=== PATIENT | female | born 1945 | race Caucasian/White ===

== ENCOUNTER 2018-05-07 11:38 | Emergency (ER) | payer MEDICARE, OTHER ==
[~2018-05-07] VITALS: Ht 172.7 cm; Wt 99.8 kg
[~2018-05-07 11:38] MED LIST: ACCUPRIL20 MG PO; ASPIRIN81 MG PO; BIOTIN5 MG PO; CARTIA XT240 MG PO; FUROSEMIDE40 MG PO; ISOPTO CARPINE15 ML OP; LIPITOR40 MG PO; MELOXICAM15 MG PO; PAROXETINE HCL40 MG PO; PHAZYME PO; PHAZYME180 MG; PILOCARPINE HCL5 MG PO; PROZAC20 MG; QUINAPRIL HCL20 MG PO; SPIRIVA18 MCG INH; STOOL SOFTENER PO; SYMBICORT INH; TRAZODONE HCL50 MG PO; TYLENOL WITH C1 EACH PO; VITAMIN B-12 INJ
[2018-05-07 13:20] LABS: CLARITY,URINE CLEAR (CLEAR); COLOR,URINE YELLOW (YELLOW)
[2018-05-07 13:22] LABS: BILIRUBIN,URINE NEGATIVE (NEGATIVE); KETONES,URINE NEGATIVE (NEGATIVE); LEUKOCYTE ESTERASE ,URINE TRACE (NEGATIVE); NITRITE,URINE NEGATIVE (NEGATIVE); PROTEIN,URINE DIPSTICK NEGATIVE (NEGATIVE); URINE UROBILINOGEN 0.2 mg/dL (0.2 - 1)
[2018-05-07 13:24] LABS: AMORPHOUS SEDIMENT,URINE FEW (FEW); BACTERIA,URINE FEW /HPF; EPITHELIAL CELLS,URINE FEW /LPF; RBC,URINE 0-5 /HPF (0-5); WBC,URINE (MAN) 0-5 /HPF (0-5)
[2018-05-07 13:45] VITALS: BP 149/93
== END 2018-05-07 13:46 | disposition home or self-care (01) ==
LOC: ER 11:38
DX: R19.7 Diarrhea, unspecified (principal); R10.9 Unspecified abdominal pain
CPT/HCPCS: 81001; 99283

== ENCOUNTER → 2019-10-23 | Day surgery (SDC) | payer MEDICARE, OTHER ==
[~2019-10-23] MED LIST changes: +ACETAMINOPHEN 1000 MG/100 ML 100 ML IV ONE; +BUPIVACAINE 0.5%/EPI 30 ML SDV INJ ONE; +CALCIUM PO; +FENTANYL CITRATE/PF 100MCG/2 ML INJ ONE; +KETOROLAC TROMETHAMINE 30 MG/ML VIAL ONE; +LIDOCAINE HCL 2% LOCAL INJ 5 ML SDV VIAL INJ ONE; +MIDAZOLAM HCL 2 MG/2 ML VIAL ONE; +ONDANSETRON HCL INJ 2MG/ML 2ML 2 MG/ML VIAL ONE; +PANTOPRAZOLE PO; +PROPOFOL IV EMULSION 10 MG/ML 20 ML VIAL ONE; +SEVOFLURANE INHAL SOLN 250 ML PEN BTL ONE; +SUCCINYLCHOLINE CHLORIDE 20 MG/ML 10ML VIAL ONE
--- OUTSIDE RECORDS SUMMARY | 2019-10-23 08:11 | XMS REPORT | Encounter Summary ---
Author Organization Unknown Address [address] [place] [address] Phone [phone] Care Team Providers Care Clinical Reviewer Name Role Phone Dr. Mariusz Gunn 3 [phone] Chiqui Ya Jr, MD 82 [phone] Kp Willis MD 2 [phone] Ted Rodriguez MD 107 [phone] Ren Mason MD 111 [phone] Reason for Visit Insomnia; Depressive disorder; Benign essential hypertension Instructions 1. Cardiac pacemaker in situ 2. Body mass index 30+ - obesity body mass index: care instructions learning about healthy weight 3. Benign essential hypertension quinapril 40 mg tablet furosemide 40 mg tablet 4. Insomnia trazodone 150 mg tablet 5. Depressive disorder paroxetine 40 mg tablet psychiatry referral psychology referral 6. Primary malignant neoplasm of female breast MAMMO, screening, digital, bilateral 7. Primary fibromyalgia syndrome meloxicam 15 mg tablet Discussion Note: None recorded. Plan of Care Reminders Provider Appointments None recorded. Lab None recorded. Referral Psychiatry Referral 06/05/2019 Huber Mittal Psychology Referral 06/05/2019 Edd Bassett LPC Procedures None recorded. Surgeries None recorded. Imaging MAMMO, Screening, Digital, Bilateral 06/09/2019 Medications Name Start Date atorvastatin 40 mg tablet Take 1 tablet every day by oral route. biotin 5,000 mcg disintegrating tablet Take 1 tablet every day by oral route. diltiazem CD 240 mg capsule,extended release 24 hr Take 1 capsule every day by oral route. Eliquis 5 mg tablet Take 1 tablet every day by oral route. furosemide 40 mg tablet Take 1 tablet every day by oral route. Linzess 290 mcg capsule Take 1 capsule every day by oral route. meloxicam 15 mg tablet TAKE 1 TABLET BY MOUTH EVERY DAY metoclopramide 5 mg tablet Take 1 tablet twice a day by oral route. pantoprazole 40 mg tablet,delayed release Take 1 tablet every day by oral route for 90 days. paroxetine 40 mg tablet Take 1 tablet every day by oral route. pilocarpine 5 mg tablet Take 2 tablets every day by oral route. quinapril 40 mg tablet Take 1 tablet every day by oral route. sucralfate 1 gram tablet Take 1 tablet 3 times a day by oral route for 30 days. trazodone 150 mg tablet TAKE 1 TABLET BY MOUTH EVERY DAY NEEDED Medications Administered None recorded. Vitals Height Weight BMI Blood Pressure 5 ft 7 in 201.6 lbs 31.6 kg/m2 120/70 mm[Hg] Results Lab Results None recorded. Allergies Code Code System Name Reaction Severity Status Onset 47811 RxNorm Itraconazole Active 05/07/2018 405 RxNorm Erythromycin Base Abdominal Pain Active Penicillins Fever Active 20271012 RxNorm Sporanox Active Problems Name Status Onset Date Source Body Mass Index 30+ - Obesity Active 05/14/2016 Depressive Disorder Active 05/14/2016 Insomnia Active 05/14/2016 Primary Fibromyalgia Syndrome Active 05/14/2016 History of Tobacco Use Active 05/14/2016 Non-toxic Multinodular Goiter Active 08/14/2016 Atrioventricular Block Active 03/26/2017 Disorder of Cardiac Pacemaker Electrode Active 03/26/2017 Acute Deep Venous Thrombosis of Upper Extremity Active 03/28/2017 Primary Malignant Neoplasm of Female Breast Active 12/28/2018 Benign Essential Hypertension Active 12/28/2018 Cardiac Pacemaker in Situ Active 12/28/2018 Gastroesophageal Reflux Disease without Esophagitis Active 06/09/2019 Irritable Bowel Syndrome Characterized by Constipation Active 06/09/2019 History of Polyp of Colon Active 06/09/2019 Procedures Date Name Performed by 2019 Laparoscopic Cholecystectomy Information not available 06/30/2012 Colonoscopy with Biopsy Information not available Hernia Repair Information not available Partial Hysterectomy Information not available Tonsillectomy Information not available Vaccine List Vaccine Type influenza, high dose seasonal 05/14/20160.5 mL influenza, unspecified formulation 09/06/2014 05/07/2018 pneumococcal conjugate PCV 13 07/09/2015 pneumococcal polysaccharide PPV23 06/10/2018 zoster subunit 03/06/2018 06/23/2018 Social History Tobacco Smoking Status Former Smoker Past Encounters 06/05/2019 Cardiac Pacemaker in Situ; Body Mass Index 30+ - Obesity; Benign Essential Hypertension; Insomnia; Depressive Disorder; Primary Malignant Neoplasm of Female Breast; Primary Fibromyalgia Syndrome Cande Yoo MD: [address] [place] [address], Ph. History of Present Illness Note:74yo female presents for follow-up visit. Last visit 12/2018 for cough. Since last visit, pt had gallbladder removed. Saw Dr Rodriguez GI in April for HIDA scan & US of gallbladder showing no gallstones but GB only functioning at 4% per pt. Was sent to general surgeon, Dr Lange, & had lap steven [birth year]. Same day surgery. Still with symptoms so returned to Dr Rodriguez & amp; had EGD/colonoscopy earlier this month in May and found one colon polyp & amp; IBS due to stress.<div>Animal Cruelty Investigation Supervisor told her to decrease stress due to hair loss.</div><div> is stressful.</div><div>Currently on Paxil 40mg qd. Agreeable to psychiatry & psychology consult. On trazodone 150mg qhs for sleep.</div><div>Dr Rodriguez placed pt on high fiber diet for constipation. Started on Linzess 290mcg qpm working great. Next appt with Dr Rodriguez is 06/15/19. Negative for H pylori. No ulcer. Placed on GERD diet. Started on sucralfate bid, PPI (protonix 40mg qd), metoclopramide 5mg bid.</div><div>Here today for medication refills.</div><div>
<div>Previously:</div><div><div>Quit smoking in 2014. Smoked off & on since age 19 before that. Smoked 1ppd for 40yrs. Will not citrus picker another cigarette. Quit cold turkey.</div><div>
</div><div> Pt also notes that she's been having trouble with hot flashes. Had partial hyste rectomy due to heavy menses and went through menopause about age 51. Was on HRT for several years until she was found to have right breast cancer about 2003. Anderson d lumpectomy & XRT in 2004. No chemo. Last mammogram about Apr 2018. Would like referral to new oncologist & new conductor pullman to discuss hot flashes and possible treatment options. 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 Is not currently followed by oncologist, either.</div><div>
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 </div></div>< /div> Review of Systems:ROS as noted in the HPI Review of Systems Comprehensive General Adult ROS Reported By: Patient Eyes: Eyes: no vision change ENMT: Ears: no ear pain. Mouth/Throat: no sore throat Cardiovascular: Cardiovascular: no chest pain, no palpitations, no lightheadedness Respiratory: Respiratory: no cough, no wheezing, no shortness of breath, no coughing up blood Gastrointestinal: Gastrointestinal: no abdominal pain, no nausea, no vomiting, no constipation, normal appetite, no diarrhea Neurologic: Neurologic: no loss of consciousness, no headaches Psychiatric: Psych: depression, sleep disturbances, restless sleep, anxiety Physical Exam Upper Respiratory Infection Exam Comprehensive Reported By: Patient Constitutional: General Appearance in no acute distress Skin: Inspection and palpation: no rash, no lesions, no ulcer, good turgor, no jaundice Head: Sinuses no tenderness Eyes: Pupils EOM intact, PERRLA, conjunctiva non-injected Ears: Right External auditory canal normal appearance, no obstruction, no erythema, no discharge. Left External auditory canal normal appearance, no obstruction, no erythema, no discharge. Right Tympanic membrane mobile with pneumatic otoscopy, pearly chance, landmarks clear. Left Tympanic membrane: mobile with pneumatic otoscopy, pearly chance, landmarks clear Nose: Nasal Skin: no lesion, no lacerations. Nasal Mucosa normal, pink and moist Oral Cavity/Mouth: Lips, teeth, gums normal lips, normal gums. Oral Mucosa: normal, moist, no lesions. Palate: normal hard palate, normal soft palate. Tongue: normal tongue, no lesion, no edema. Tonsils: normal tonsils, no lesions. Posterior pharynx: normal Lymph Nodes: Cervical no palpable lymph node enlargement, no submandibular adenopathy, no posterior cervical adenopathy, no anterior cervical adenopathy, no supraclavicular adenopathy Neck: Neck symmetrical, trachea midline Lungs: Respiratory effort unlabored. Auscultation breath sounds normal, no wheezing, no rales / crackles, no rhonchi Cardiovascular System: Auscultation regular rate and rhythm, no murmur, no rubs, no gallops. Observation/Palpation of peripheral vascular system no varicosities, carotid pulse normal, no edema
--- OUTSIDE RECORDS SUMMARY | 2019-10-23 08:11 | XMS REPORT | Encounter Summary ---
Author Organization Unknown Address [address] [place] [address] Phone [phone] Care Team Providers Care Burglary Investigator Name Role Phone Dr. Mariusz Gunn 3 [phone] Chiqui Ya Jr, MD 82 [phone] Kp Willis MD 2 [phone] Ted Rodriguez MD 107 [phone] Ren Mason MD 111 [phone] Reason for Visit sore throat; cough / congestion Instructions 1. Pneumonia Zithromax Z-Riky 250 mg tablet codeine 10 mg-guaifenesin 100 mg/5 mL oral liquid 2. Body mass index 30+ - obesity body mass index: care instructions learning about healthy weight 3. Screening for disorder Discussion Note: None recorded. Plan of Care Reminders Provider Appointments None recorded. Lab None recorded. Referral None recorded. Procedures None recorded. Surgeries None recorded. Imaging None recorded. Medications Name Start Date atorvastatin 40 mg tablet Take 1 tablet every day by oral route. biotin 5,000 mcg disintegrating tablet Take 1 tablet every day by oral route. codeine 10 mg-guaifenesin 100 mg/5 mL oral liquid Take 10 mL every 8 hours by oral route as needed. diltiazem CD 240 mg capsule,extended release 24 [...] sucralfate 1 gram tablet Take 1 tablet every day by oral route for 30 days. trazodone 150 mg tablet TAKE 1 TABLET BY MOUTH EVERY DAY NEEDED Zithromax Z-Riky 250 mg tablet TAKE 2 TABLETS (500 MG) BY ORAL ROUTE ONCE DAILY FOR 1 DAY THEN 1 TABLET (250 MG) BY ORAL ROUTE ONCE DAILY FOR 4 DAYS Medications Administered None recorded. Vitals Height Weight BMI Blood Pressure 5 ft 7 in 205 lbs 32.1 kg/m2 130/60 mm[Hg] Results Lab Results None recorded. Allergies Code Code System Name Reaction Severity Status Onset 4053 RxNorm Erythromycin Base Abdominal Pain Active Penicillins [...] by 2019 Laparoscopic Cholecystectomy Information not available Colonoscopy with Biopsy Information not available Hernia Repair Information not available Partial Hysterectomy Information not available Tonsillectomy Information not available Vaccine List Vaccine Type influenza, high dose seasonal 05/14/20160.5 mL influenza, injectable, quadrivalent 05/07/2019 influenza, unspecified formulation 09/06/2014 05/07/2018 pneumococcal conjugate PCV 13 07/09/2015 pneumococcal polysaccharide PPV23 06/10/2018 zoster subunit 03/06/2018 06/23/2018 Social History Tobacco Smoking Status Former Smoker Past Encounters 07/28/2019 Pneumonia; Body Mass Index 30+ - Obesity; Screening for Disorder Casimiro Villa, DO: [address] [place] [address], Ph. History of Present Illness Upper Respiratory Symptoms Reported By: Patient Upper Respiratory Symptoms: Location: chest, throat. Quality: productive cough, colored phlegm, congested. Severity: moderate. Duration: ; 3 days. Onset/Timing: gradual. Context: no foreign travel, non-smoker, sick contact. Mod ifying Factors: OTC medication. Associated Symptoms: no fever, no vomiting, no diarrhea, yellow sputum, shortness of breath, wheezing, fatigue, sweats, sore throat Review of Systems Comprehensive General Adult ROS Reported By: Patient Constitutional: Constitutional: no night sweats, no significant weight gain, no significant weight loss, no exercise intolerance, lethargy; sweating throughout day Eyes: Eyes: no dry eyes, no vision change, no irritation ENMT: Ears: no difficulty hearing, no ear pain. Nose: no frequent nosebleeds, no nose problems, no sinus problems. Mouth/Throat: no bleeding gums, sore throat Cardiovascular: Cardiovascular: no chest pain, no shortness of breath when walking, no palpitations Respiratory: Respiratory: no wheezing, no coughing up blood, cough, shortness of breath Gastrointestinal: Gastrointestinal: no abdominal pain, no nausea, no vomiting, no constipation, no diarrhea Musculoskeletal: Musculoskeletal: no muscle aches, no muscle weakness Allergic/Immunologic: Allergy/Immunologic: no runny nose, no sinus pressure Physical Exam Upper Respiratory Infection Exam Comprehensive Reported By: Patient Constitutional: General Appearance moderate distress Skin: Inspection and palpation: no rash, no lesions, no ulcer, good turgor, no jaundice Head: Sinuses no tenderness Eyes: Pupils EOM intact, conjunctiva non-injected Ears: Right External auditory canal normal appearance, no erythema, no discharge. Left External auditory canal normal appearance, no erythema, no discharge. Right Tympanic membrane pearly chance, landmarks clear. Left Tympanic membrane: pearly chance, landmarks clear Nose: Nasal Skin: no lesion, no lacerations. Nasal Mucosa normal, pink and moist Oral Cavity/Mouth: Posterior pharynx: normal Lungs: Respiratory effort unlabored. Auscultation breath sounds normal, no wheezing, no rhonchi, rales / crackles,left midlung field Cardiovascular System: Auscultation no rubs, no gallops, murmur
--- OUTSIDE RECORDS SUMMARY | 2019-10-23 08:11 | XMS REPORT | Encounter Summary ---
Author Organization Unknown Address [address] [place] [address] Phone [phone] Care Team Providers Care Instrument Setter Name Role Phone Dr. Mariusz Gunn 3 [phone] Chiqui Ya Jr, MD 82 [phone] Kp Willis MD 2 [phone] Ted Rodriguez MD 107 [phone] Ren Mason MD 111 [phone] Reason for Visit flu symptoms Instructions 1. Influenza-like illness rapid flu (A+B) Tamiflu 75 mg capsule codeine 10 mg-guaifenesin 100 mg/5 mL oral liquid 2. Primary fibromyalgia syndrome meloxicam 15 mg tablet 3. Body mass index 30+ - obesity body mass index: care instructions learning about healthy weight Discussion Note: None recorded. Plan of Care Reminders Provider Appointments None recorded. Lab Rapid Flu (A+B) 09/28/2019 [facility] Referral None recorded. Procedures None recorded. Surgeries [...] 1 TABLET BY MOUTH EVERY DAY NEEDED metoclopramide 5 mg tablet Take 1 tablet [...] day by oral route for 30 days. Tamiflu 75 mg capsule Take 1 capsule twice a day by oral route for 5 days. trazodone 150 mg tablet TAKE 1 TABLET BY MOUTH EVERY DAY NEEDED Medications Administered None recorded. Vitals Height Weight BMI Blood Pressure 5 ft 7 in 210.2 lbs 32.9 kg/m2 136/84 mm[Hg] Results Lab Results Date Name Specimen Result Interpretation Description Value Range Status Address Rapid Flu (A+B) Type Flu a negative [facility]: [address] [facility] Type Flu B negative [facility]: [address] [facility] Allergies Code Code System Name Reaction Severity [...] 13 07/09/2015 pneumococcal polysaccharide PPV23 06/10/2018 zoster recombinant 03/06/2018 06/23/2018 Social History Tobacco Smoking Status Former Smoker Past Encounters 09/28/2019 Influenza-like Illness; Primary Fibromyalgia Syndrome; Body Mass Index 30+ - Obesity Casimiro Villa, DO: [address] [place] [address], Ph. History of Present Illness Note:Patient presents to the clinic today with the following concern(s):<div> < div><div>1) COLD SX'S </div><div>- cough, body aches, fever x 1 day. Cough is non-productive. Recent return from [place]. Has taken two ibuprofen prior to clinic visit but continues to have fever. Denies ear pain, sore throat, nasal congestion, sinus pain/pressure, n/v.
<div> </div></div></div></div> Review of Systems Comprehensive General Adult ROS Reported By: Patient Constitutional: Constitutional: no night sweats, no significant weight gain, no significant weight loss, no exercise intolerance, fever, lethargy Eyes: Eyes: no dry eyes, no vision change, no irritation ENMT: Ears: no difficulty hearing, no ear pain. Nose: no frequent nosebleeds, no nose problems, no sinus problems. Mouth/Throat: no sore throat, no bleeding gums Cardiovascular: Cardiovascular: no chest pain, no shortness of breath when walking, no palpitations Respiratory: Respiratory: no wheezing, no shortness of breath, cough Gastrointestinal: Gastrointestinal: no abdominal pain, no nausea, no vomiting, no constipation, no diarrhea Physical Exam Upper Respiratory Infection Exam Comprehensive Reported By: Patient Constitutional: General Appearance moderate distress Skin: Inspection and palpation: no rash, no lesions, no ulcer, good turgor, no jaundice Head: Sinuses no tenderness Eyes: Pupils EOM intact, conjunctiva non-injected Ears: Right External auditory canal no erythema, no discharge. Left External auditory canal no erythema, no discharge. Right Tympanic membrane pearly chance, landmarks clear. Left Tympanic membrane: pearly chance, landmarks clear Nose: Nasal Mucosa normal, pink and moist Oral Cavity/Mouth: Posterior pharynx: normal Lungs: Respiratory effort unlabored. Auscultation breath sounds normal, no wheezing, no rales / crackles, no rhonchi Cardiovascular System: Auscultation regular rate and rhythm, no murmur, no rubs, no gallops
--- OUTSIDE RECORDS SUMMARY | 2019-10-23 08:11 | XMS REPORT | Encounter Summary ---
Author Organization Unknown Address [address] [place] [address] Phone [phone] Care Team Providers Care Director Teen Post Name Role Phone Dr. Mariusz Gunn 3 [phone] Colin Momin MD 3 [phone] Chiqui Ya Jr, MD 82 [phone] Kp Willis MD 2 [phone] Ted Rodriguez MD 107 [phone] Ren Mason MD 111 [phone] Reason for Visit lab follow-up Instructions 1. Obesity learning about healthy weight 2. Acute bronchitis 3. Anemia hematology referral 4. Cardiac pacemaker in situ Discussion Note will refer to hematology Plan of Care Patient Instructions contiue meds ,obtain cxr Reminders Provider Appointments Return to Office on or around 10/20/2019 Colin Momin MD Lab None recorded. Referral Hematology Referral 10/16/2019 Anila Mcghee MD Procedures None recorded. Surgeries None recorded. Imaging None recorded. Medications Name Start Date atorvastatin 40 mg tablet Take 1 tablet every day by oral route. azithromycin 250 mg tablet TAKE 2 TABLETS (500 MG) BY ORAL ROUTE ONCE DAILY FOR 1 DAY THEN 1 TABLET (250 MG) BY ORAL ROUTE ONCE DAILY FOR 4 DAYS biotin 5,000 mcg disintegrating tablet Take 1 tablet every day by oral route. diltiazem CD 240 mg capsule,extended release 24 hr Take 1 capsule every day by oral route. Eliquis 5 mg tablet Take 1 tablet twice a day by oral route. furosemide 40 mg tablet Take 1 tablet every day by oral route. meloxicam 15 mg tablet TAKE 1 TABLET BY MOUTH EVERY DAY NEEDED pantoprazole 40 mg tablet,delayed release Take 1 tablet every day by oral route for 90 days. paroxetine 40 mg tablet Take 1 tablet every day by oral route. pilocarpine 5 mg tablet Take 2 tablets every day by oral route. quinapril 40 mg tablet Take 1 tablet every day by oral route. trazodone 150 mg tablet TAKE 1 TABLET BY MOUTH EVERY DAY NEEDED Medications Administered None recorded. Vitals Height Weight BMI Blood Pressure 5 ft 7 in 210 lbs 32.9 kg/m2 (1) 160/72 mm[Hg] (2) 136/72 mm[Hg] Results Lab Results Date Name Specimen Result Interpretation Description Value Range Status Address 10/13/2019 CBC W/ Auto Diff Normal White Blood Cell Count 7.5 thousand/uL 3.8-10.8 thousand/uL Final [facility]: [address] [place] [address], [place] Normal Red Blood Cell Count 3.83 million/uL 3.80-5.10 million/uL Final [facility] [address] [facility] Hemoglobin 9.1 g/dL 11.7-15.5 g/dL Final [facility] Laboratory: [address] [place] [address] Low Hematocrit 29.7 % 35.0-45.0 % Final [facility]: [address] [place] [address] Low Mcv 77.5 fL 80.0-100.0 fL Final [facility]: [address] [place] [address] Low Mch 23.8 pg 27.0-33.0 pg Final [facility]: [address] [facility], [place] Low Mchc 30.6 g/dL 32.0-36.0 g/dL Final [facility] Laboratory: [address] [place] [address] High Rdw 15.2 % 11.0-15.0 % Final [facility] Laboratory: [address] [place] [address] High Platelet Count 550 thousand/uL 140-400 thousand/uL Final [facility] Laboratory: [address] [place] [address] Normal Mpv 9.5 fL 7.5-12.5 fL Final [facility] [address] Normal Absolute Neutrophils 4613 cells/uL 8635-3471 cells/uL Final [facility]: [address] [place] [address] Normal Absolute Lymphocytes 1748 cells/uL 850-3900 cells/uL Final [facility]: [address] Normal Absolute Monocytes 773 cells/uL 200-950 cells/uL Final [facility]: [address] [facility] [place] Normal Absolute Eosinophils 300 cells/uL 15-500 cells/uL Final [facility]: [address] Normal Absolute Basophils 68 cells/uL 0-200 cells/uL Final [facility]: [address] [facility], [place] Normal Neutrophils 61.5 % Final [facility]: [address] Normal Lymphocytes 23.3 % Final [facility]: [address] [place] [address], [place] Normal Monocytes 10.3 % Final [facility]: [address] [place] [address], [place] Normal Eosinophils 4.0 % Final [facility]: [address] [facility] [place] Normal Basophils 0.9 % Final [facility]: [address] [place] [address] 10/13/2019 Iron + TIBC + Ferritin, Serum Ferritin 5.55 NG/mL 4.63- 204.00 NG/mL Final [facility]: [address] Iron, Total 51 mcg/dL 45-160 mcg/dL Final [facility]: [address] Transferrin 341 mg/dL 173-360 mg/dL Final [facility]: [address] High Total Iron Binding Capacity (Calculated) 488 mcg/dL 250-450 mcg/dL Final [facility]: [address] Low % Saturation 10.5 % 11.0-50.0 % Final [facility]: [address] 10/13/2019 Vitamin B12 + Folate, Serum or Blood Folate 16.1 NG/mL Final [facility]: [address] Vitamin B12 580 pg/mL 213-816 pg/mL Final [facility]: [address] Rapid Flu [facility]B) [facility] [address] [facility] [address] [facility] Allergies Code Code System Name Reaction [...] Information not available Tonsillectomy Information not available 10/13/2019 XR, Chest, 2 View [facility] [address] [place] [address] (Work Place) Vaccine List Vaccine Type influenza, high dose seasonal 05/14/20160.5 mL influenza, injectable, quadrivalent 05/07/2019 influenza, unspecified formulation 09/06/2014 05/07/2018 pneumococcal conjugate PCV 13 07/09/2015 pneumococcal polysaccharide PPV23 06/10/2018 zoster recombinant 03/06/2018 06/23/2018 Social History Tobacco Smoking Status Former Smoker Past Encounters 10/16/2019 Obesity; Acute Bronchitis; Anemia; Cardiac Pacemaker in Situ Colin Momin MD: [address] [place] [phone], Ph. 10/13/2019 Vertigo; Obesity; Acute Bronchitis; History of Anemia Colin Momin MD: [address] [place] [phone], Ph. 09/28/2019 Influenza-like Illness; Primary Fibromyalgia Syndrome; Body Mass Index 30+ - Obesity Casimiro Villa DO: [address] [place] [phone], Ph. History of Present Illness Note:f/u bronchitis compliant with -much improved awaiting cxr<div> lab - anemic,hgb/hct 9.1/29.7 .>platelets 550</div><div> ferritin 5.5-<%sat 10.5->tibc 488</div><div> normal colonoscopy last yr</div> Review of Systems:ROS as noted in the HPI Review of Systems None recorded. Physical Exam Upper Respiratory Infection Exam Comprehensive [...] and rhythm, no murmur, no rubs, no gallops; pace maker in situ. Observation/Palpation of peripheral vascular system no varicosities, carotid pulse normal, no edema
--- OUTSIDE RECORDS SUMMARY | 2019-10-23 08:11 | XMS REPORT | Encounter Summary ---
Author Organization Unknown Address [address] [place] [address] Phone [phone] Care Team Providers Care Sheetfed Press Operator Name Role Phone Dr. Mariusz Gunn 3 [phone] Chiqui Ya Jr, MD 82 [phone] Kp Willis MD 2 [phone] Ted Rodriguez MD 107 [phone] Ren Mason MD 111 [phone] Reason for Visit cough / congestion Instructions 1. Generalized aches and pains rapid flu (A+B) 2. Cold sweat 3. Body mass index 30+ - obesity body mass index: care instructions learning about healthy weight 4. Senile purpura 5. Chronic obstructive lung disease Discussion Note: None recorded. Plan of Care Reminders Provider Appointments None recorded. Lab Rapid Flu (A+B) 08/02/2019 [facility] Referral None recorded. Procedures None recorded. Surgeries [...] BMI Blood Pressure 5 ft 7 in 203 lbs 31.8 kg/m2 116/64 mm[Hg] Results Lab Results Date Name Specimen Result Interpretation Description Value Range Status Address 08/02/2019 Rapid Flu (A+B) Type [facility] [address] [facility] Type Flu B negative [facility] [address] [facility] Allergies Code Code System Name Reaction [...] Tobacco Smoking Status Former Smoker Past Encounters 08/02/2019 Generalized Aches and Pains; Cold Sweat; Body Mass Index 30+ - Obesity; Senile Purpura; Chronic Obstructive Lung Disease Casimiro Villa, DO: [address] [place] [address], Ph. 07/28/2019 Pneumonia; Body Mass Index 30+ - Obesity; Screening for Disorder Casimiro Villa, DO: [address] [place] [address], Ph. History of Present Illness Note:1) COLD SWEATS <div><div>- cough, congestion, cold sweats, body aches that started 8 days ago. Diagnosed with PNA and prescribed azithromycin. Has since improved after completing antibiotics. Cold sweats and body aches started to become less frequent. She left home yesterday to go out and while out had episode of cold sweats and body aches. Cold sweat and body aches was associated with stomach upset. Denies nausea, vomiting, diarrhea. Was concerned about constipation. </div></div> Review of Systems Comprehensive General Adult ROS Reported By: Patient Constitutional: Constitutional: no fever; cold sweats Cardiovascular: Cardiovascular: no chest pain, no shortness of breath when walking Respiratory: Respiratory: no wheezing, no shortness of breath, cough Gastrointestinal: Gastrointestinal: no nausea, no vomiting, no constipation, no diarrhea, abdominal pain Musculoskeletal: Musculoskeletal: no muscle weakness, no arthralgias/joint pain, no swelling in the extremities, muscle aches Integumentary: Skin: no jaundice, no rashes Endocrine: Endocrine: no fatigue Allergic/Immunologic: Allergy/Immunologic: runny nose, sinus pressure, frequent sneezing Physical Exam Upper Respiratory Infection Exam Comprehensive [...] clear Nose: Nasal Mucosa normal, pink and moist, clear discharge Oral Cavity/Mouth: Posterior pharynx: normal Lungs: Respiratory effort unlabored. Auscultation breath sounds normal, no wheezing, no rales / crackles, no rhonchi Cardiovascular System: Auscultation regular rate and rhythm, no murmur, no rubs, no gallops
--- OUTSIDE RECORDS SUMMARY | 2019-10-23 08:11 | XMS REPORT | Encounter Summary ---
Author Organization Unknown Address [address] [place] [address] Phone [phone] Care Team Providers Care Salon Professional Name Role Phone Dr. Mariusz Gunn 3 [phone] Chiqui Ya Jr, MD 82 [phone] Kp Willis MD 2 [phone] Ted Rodriguez MD 107 [phone] Ren Mason MD 111 [phone] Reason for Visit other - see typed reason Instructions 1. Acute laryngitis 2. Acute bronchitis Cheratussin AC 10 mg-100 mg/5 mL oral liquid 3. Cardiac pacemaker in situ 4. Primary malignant neoplasm of female breast oncology referral gynecology referral 5. Primary fibromyalgia syndrome meloxicam 15 mg tablet 6. Depressive disorder paroxetine 40 mg tablet 7. Body mass index 30+ - obesity body mass index: care instructions learning about healthy weight 8. Insomnia trazodone 150 mg tablet 9. Atrioventricular block 10. Benign essential hypertension quinapril 40 mg tablet Discussion Note: None recorded. Plan of Care Reminders Provider Appointments Return to Office on or around 03/29/2019 Cande Yoo MD Lab None recorded. Referral Oncology Referral 12/26/2018 Ilene ChairezJalenca Gynecology Referral 12/26/2018 Nolan Mancilla MD Procedures None recorded. Surgeries None recorded. Imaging None recorded. Medications Name Start Date atorvastatin 40 mg tablet Take 1 tablet every day by oral route. biotin 5,000 mcg disintegrating tablet Take 1 tablet every day by oral route. Cartia XT 240 mg capsule,extended release Take 1 capsule every day by oral route. Cheratussin AC 10 mg-100 mg/5 mL oral liquid Take 10 mL every 8 hours by oral route as needed. Eliquis 5 mg tablet Take 1 tablet every day by oral route. furosemide 40 mg tablet Take 1 tablet every day by oral route. hydrocortisone 2.5 % lotion PRN meloxicam 15 mg tablet TAKE 1 TABLET BY MOUTH EVERY DAY paroxetine 40 mg tablet Take 1 tablet every day by oral route. pilocarpine 5 mg tablet Take 2 tablets every day by oral route. quinapril 20 mg tablet Take 1 tablet every day by oral route. quinapril 40 mg tablet Take 1 tablet every day by oral route. trazodone 150 mg tablet TAKE 1 TABLET BY MOUTH EVERY DAY NEEDED Medications Administered None recorded. Vitals Height Weight BMI Blood Pressure 5 ft 7 in 204 lbs 32 kg/m2 (1) 146/72 mm[Hg] (2) 144/70 mm[Hg] Lab Results None recorded. Allergies Code Code System Name Reaction Severity Status Onset RxNorm Itraconazole Active 05/07/2018 405 RxNorm Erythromycin [...] 12/28/2018 Cardiac Pacemaker in Situ Active 12/28/2018 Procedures Date Name Performed by 06/30/2012 Colonoscopy with Biopsy Information not available Hernia Repair Information not available Partial Hysterectomy Information not available Tonsillectomy Information not available Vaccine List Vaccine Type influenza, high dose seasonal 05/14/20160.5 mL influenza, unspecified formulation 09/06/2014 05/07/2018 pneumococcal conjugate PCV 13 07/09/2015 pneumococcal polysaccharide PPV23 06/10/2018 zoster subunit 03/06/2018 06/23/2018 Social History Smoking Status Former Smoker (1 PPD) Past Encounters 12/26/2018 Acute Laryngitis; Acute Bronchitis; Cardiac Pacemaker in Situ; Primary Malignant Neoplasm of Female Breast; Primary Fibromyalgia Syndrome; Depressive Disorder; Body Mass Index 30+ - Obesity; Insomnia; Atrioventricular Block; Benign Essential Hypertension Cande Yoo MD: [address] [place] [address], Ph. History of Present Illness Note:73yo female presents for evaluation of laryngitis for the past two weeks associated with cough. Occasional yellow sputum. No fever. Very sore throat. Has been staying home & not talking. Voice is worse after coughing spell.<div> Saw ENT, Dr Venkat Rhoades about 10days ago. Was given cough medicine with hydrocodone from Dr Rhoades, but it didn't work as well as prior cough medicine with codeine fr om Dr Lr & Dr Momin.</div><div>Quit smoking in 2014. Smoked off & on since age 19 before that. Smoked 1ppd for 40yrs. 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 Quit cold turkey.</div><div>
</div><div>Pt also notes that she's been having trouble with hot flashes. Had partial hysterectomy due to heavy menses and went through menopause about age 51. Was on HRT for several years until she was found to have right breast cancer about 2003. Had lumpectomy & XRT in 2004. No chemo. Last mammogram about Apr 2018. Would like referral to new oncologist & new rag sorter and cutter to discuss hot flashes and possible treatment options. 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 Is not currently followed by oncologist, either.</div><div>
</div><div>Would like refill of regular medications today while in office.</div><div>
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 Next appt in February 2019, last visit in Aug 2019.</div> Review of Systems:ROS as noted in the HPI Review of Systems Comprehensive General Adult ROS Reported By: Patient Eyes: Eyes: no vision change ENMT: Ears: no ear pain. Nose: nose problems. Mouth/Throat: sore throat; laryngitis, hoarseness Cardiovascular: Cardiovascular: no chest pain, no palpitations, no lightheadedness Respiratory: Respiratory: no wheezing, no shortness of breath, no coughing up blood, cough Gastrointestinal: Gastrointestinal: no abdominal pain, no nausea, no vomiting, no constipation, normal appetite, no diarrhea Neurologic: Neurologic: no loss of consciousness, no headaches Physical Exam Upper Respiratory Infection Exam Comprehensive [...]
--- OUTSIDE RECORDS SUMMARY | 2019-10-23 08:11 | XMS REPORT ---
Author Organization Unknown Address [address] [place] [address] Phone [phone] Care Team Providers Care Gluing Machine Feeder Name Role Phone ALEC KONG JR, MD 82 [phone] JUAN M SANTANA MD 2 [phone] Allergies Code Code System Name Reaction Severity Status Onset 63466 RxNorm Itraconazole Deactivated 08/14/2016 4053 RxNorm Erythromycin Base Abdominal Pain Active Penicillins Active 20271012 RxNorm Sporanox Active Medications Name Status Start Date Stop Date acetaminophen 300 mg-codeine 30 mg tablet Completed 05/14/2016 Advair Diskus 250 mcg-50 mcg/dose powder for inhalation BID Completed 02/22/2017 Amitiza 8 mcg capsule Completed 02/10/2017 atorvastatin 40 mg tablet Take 1 tablet every day by oral route. Active Not available azithromycin 250 mg tablet Completed 06/01/2016 biotin 5,000 mcg disintegrating tablet Take 1 tablet every day by oral route. Active Not available Cartia XT 240 mg capsule,extended release Active Not available Cheratussin AC 10 mg-100 mg/5 mL oral liquid Take 10 mL every 4 hours by oral route. Completed 07/22/2016 ciprofloxacin 0.3 % eye drops Instill 1 [drp] by ophthalmic route. Completed 08/26/2017 clindamycin HCl 300 mg capsule Completed 07/22/2016 clotrimazole-betamethasone 1 %-0.05 % topical cream DIRECTED Completed 02/10/2017 dexamethasone 4 mg/mL injection solution Take 1 mL by injection route. Completed 07/22/2016 apixaban 5 mg tablet 10 mg by oral route. Completed 03/29/2017 04/13/2017 furosemide 40 mg tablet Take 1 tablet every day by oral route. Active Not available hydrocodone 10 mg-acetaminophen 325 mg tablet Completed 05/14/2016 hydrocortisone 2.5 % lotion PRN Active Not available indomethacin 25 mg capsule Take 1 capsule every day by oral route. Active Not available Kenalog 40 mg/mL suspension for injection Take 1 mL by injection route. Completed 07/22/2016 levofloxacin 500 mg tablet Completed 07/22/2016 meloxicam 15 mg tablet Active Not available minocycline 100 mg capsule Completed 08/26/2017 naproxen 500 mg tablet Completed 05/14/2016 Paxil 40 mg tablet Take 1 tablet every day by oral route. Active Not available pilocarpine 5 mg tablet Take 2 tablets every day by oral route. Active Not available prednisolone acetate 1 % eye drops,suspension Completed 08/26/2017 prednisolone sodium phosphate 1 % eye drops Instill 1 [drp] by ophthalmic route. Completed 08/26/2017 ProAir HFA 90 mcg/actuation aerosol inhaler Completed 02/10/2017 quinapril 20 mg tablet Take 1 tablet every day by oral route. Active Not available SB Low Dose ASA EC 81 mg tablet,delayed release Take 1 tablet every day by oral route. Active Not available Spiriva Respimat 2.5 mcg/actuation solution for inhalation Completed 05/14/2016 SSD 1 % topical cream Completed 08/26/2017 trazodone 150 mg tablet Active Not available Ultram 50 mg tablet 50 mg every 6 hours by oral route. Completed 03/26/2017 04/01/2017 Vagifem 10 mcg vaginal tablet Completed 02/10/2017 Notes: stool softener 1 tab every day biotene 1 tab every day phazyme 250 mg 1 prn OTC EYE DROPS : QD Problems Name Status Onset Date Source Body Mass Index 30+ - Obesity Active 05/14/2016 Depressive Disorder Active 05/14/2016 Insomnia Active 05/14/2016 Primary Fibromyalgia Syndrome Active 05/14/2016 History of Tobacco Use Active 05/14/2016 Non-toxic Multinodular Goiter Active 08/14/2016 External Atrioventricular Block Active 03/26/2017 External Disorder of Cardiac Pacemaker Electrode Active 03/26/2017 External Acute Deep Venous Thrombosis of Upper Extremity Active 03/28/2017 External Procedures Date Name Performed by Hernia Repair Notes: 2009 for Hiatal Hernia Information not available Partial Hysterectomy Notes: 1990 Information not available Tonsillectomy Notes: 1975 Information not available 07/06/2016 US, Neck, Soft Tissue [facility] [place] [address] [place] [address] (Work Place) 02/10/2017 US, Neck, Soft Tissue [facility] [place] [address] [place] [address] (Work Place) 02/11/2017 US, Thyroid [facility] [place] [address] [place] [address] (Work Place) 09/30/2017 CT, Head, W/o Contrast [facility] [place] [address] [place] [address] (Work Place) Notes: Cardiac ablation:1994 pacemaker:1996 new pacemaker:2003 3rd pacemaker:2009 lapband:2005 Right Breast lumpectomy:2003 Right Ankle ORIF:2004 Colonic polyp removal:2008 lump removal(neck):2009 Left breast reduction:2010 bladder susp:2010 Right cataract removal,lens implant:2012 liposuction,tummy tuck,butt lift:2013 Right ankle hardware removal:2015 *rt lung doesn't work* Lab Results Date Name Specimen Result Interpretation Description Value Range Status Address 08/09/2017 Lipid Panel, Serum No observation recorded. 02/10/2017 CBC W/ Auto Diff Wbc 8.02 x10*3/L 2.60-11.20 x10*3/L Final [facility]: [address] Rbc 4.77 10*12/L 3.93-5.87 10*12/L Final [facility]: [address] Hemoglobin 13.70 g/dL 10.70-15.70 g/dL Final [facility]: [address] Hematocrit 42.4 % 33.2-46.8 % Final [facility]: [address] Mcv 88.9 fL 77.8-103.4 fL Final [facility]: [address] Mch 28.7 pg 24.8-35.0 pg Final [facility]: [address] Mchc 32.3 g/dL 31.5-35.9 g/dL Final [facility]: [address] RDW-SD 42.4 fL 35.8-50.4 fL Final [facility]: [address] Platelet Count 331.0 k/uL 126.7-416.1 k/uL Final [facility]: [address] Mpv 10.9 fL 8.3-13.5 fL Final [facility]: [address] Neut% 66.4 % 39.5-76.9 % Final [facility] [address] [facility] Lymph% 22.9 % 12.6-45.8 % Final [facility]: [address] Mon% 7.6 % 3.7-12.9 % Final [facility] [address] [facility] Eos% 2.5 % 0.7-6.4 % Final [facility] [address] [facility] Baso% 0.6 % 0.1-1.5 % Final [facility] [address] [facility] Neut# 5.3 x10*3/L 0.6-7.6 x10*3/L Final [facility]: [address] Lymph# 1.8 x10*3/L 0.7-3.3 x10*3/L Final [facility]: [address] Mon# 0.6 x10*3/L 0.2-1.0 x10*3/L Final [facility] [address] [facility] Eos# 0.20 x10*3/L 0.04-0.44 x10*3/L Final [facility] [address] [facility] Baso# 0.05 x10*3/L 0.01-0.08 x10*3/L Final [facility] [address] [facility] 07/22/2016 TSH, Serum or Plasma Tsh 2.1033 uIU/mL 0.3500-4.9400 uIU/mL Final [facility] [address] [facility] 03/11/2015 Lipid Panel, Serum No observation recorded. 11/19/2014 CBC W/ Auto Diff No observation recorded. 09/03/2014 Iron Panel, Serum or Plasma No observation recorded. 08/27/2014 CBC W/ Auto Diff No observation recorded. Past Encounters 10/07/2017 Headache Colin Momin MD: [address] [place] [phone], Ph. 09/30/2017 Depressive Disorder; Paroxysmal Hemicrania Colin Momin MD: [address] [place] [phone], Ph. 08/26/2017 Influenza Vaccination; Pneumococcal Vaccination; Primary Fibromyalgia Syndrome; Depressive Disorder; Insomnia; Benign Neoplasm of Sacrum Colin Momin MD: [address] [place] [phone], Ph. 03/31/2017 Beatriz Ananda: [address] [facility], [address], [place] [address], Ph. 02/22/2017 Cyst of Thyroid; Neoplasm of Neck Colin Momin MD: [address] [place] [phone], Ph. 02/10/2017 Depressive Disorder; Insomnia; Primary Fibromyalgia Syndrome; Neoplasm of Neck Colin Momin MD: [address] [place] [phone], Ph. 07/22/2016 Thyroid Nodule Colin Momin MD: [address] [place] [phone], Ph. 07/06/2016 Neoplasm of Neck; Verruca Vulgaris Colin Momin MD: [address] [place] [phone], Ph. 06/01/2016 Acute Bronchitis Colin Momin MD: [address] [place] [phone], Ph. 05/14/2016 Acute Bronchitis; Body Mass Index 30+ - Obesity; Influenza Vaccination; Insomnia; Primary Fibromyalgia Syndrome; Depressive Disorder; History of Tobacco Use; Adult Health Examination Farrah Reaves MD: [address] [place] [address], Ph. Social History Smoking Status Former Smoker (1 PPD) Notes: Quit in 2013 Vaccine List Vaccine Type influenza, high dose seasonal 05/14/20160.5 mL influenza, unspecified formulation 09/06/2014 pneumococcal conjugate PCV 13 07/09/2015 Notes: decline's all vaccine's-10/07/2017-luis Plan of Care Patient Instructions d/c meloxicam start indocid 25 mgs qd rtc 1 week continuecall meds Reminders Provider Appointments None recorded. Lab None recorded. Referral None recorded. Procedures None recorded. Surgeries None recorded. Imaging None recorded. Vitals 10/07/2017 04:00PM Est Patient Height Weight Blood Pressure 5 ft 8 in 138/72 mm[Hg] 09/30/2017 02:45PM Est Patient Height Weight Blood Pressure 5 ft 8 in 138/80 mm[Hg] 08/26/2017 12:45PM Est Patient Height Weight Blood Pressure 5 ft 8 in (1) 170/78 mm[Hg] (2) 146/70 mm[Hg] 02/22/2017 01:15PM Est Patient Height Weight BMI Blood Pressure 5 ft 8 in 200 lbs 30.4 kg/m2 (1) 160/80 mm[Hg] (2) 138/70 mm[Hg] 02/10/2017 01:45PM Est Patient Height Weight BMI Blood Pressure 5 ft 8 in 203 lbs 30.9 kg/m2 128/72 mm[Hg] 07/22/2016 01:15PM Est Patient Height Weight BMI Blood Pressure 5 ft 8 in 229 lbs 34.8 kg/m2 135/78 mm[Hg] 07/06/2016 02:30PM Est Patient Height Weight BMI Blood Pressure 5 ft 8 in 229 lbs 34.8 kg/m2 164/91 mm[Hg] 06/01/2016 01:15PM Est Patient Height Weight BMI Blood Pressure 5 ft 8 in 232 lbs 35.3 kg/m2 (1) 166/76 mm[Hg] (2) 129/68 mm[Hg] 05/14/2016 01:15PM Est Patient Height Weight BMI Blood Pressure 5 ft 8 in 229 lbs 34.8 kg/m2 140/87 mm[Hg]
--- OUTSIDE RECORDS SUMMARY | 2019-10-23 08:11 | XMS REPORT | Encounter Summary ---
Author Organization Unknown Address [address] [place] [address] Phone [phone] Care Team Providers Care Correctional Cook Name Role Phone Dr. Mariusz Gunn 3 [phone] Colin Momin MD 3 [phone] Chiqui Ya Jr, MD 82 [phone] Kp Willis MD 2 [phone] Ted Rodriguez MD 107 [phone] Ren Mason MD 111 [phone] Reason for Visit dizziness; cough / congestion Instructions 1. Vertigo vertigo: care instructions 2. Obesity learning about healthy weight 3. Acute bronchitis Zithromax Z-Riky 250 mg tablet XR, chest, 2 view 4. History of anemia CBC w/ auto diff iron + TIBC + ferritin, serum vitamin B12 + folate, serum or blood Discussion Note: None recorded. Plan of Care Patient Instructions meds as directed,rtc 1 week Reminders Provider Appointments Return to Office on or around 10/20/2019 Colin Momin MD Lab CBC W/ Auto Diff 10/13/2019 [facility] Iron + TIBC + Ferritin, Serum 10/13/2019 [facility] Vitamin B12 + Folate, Serum or Blood 10/13/2019 [facility] Referral None recorded. Procedures None recorded. Surgeries None recorded. Imaging XR, Chest, 2 View 10/13/2019 [facility] Medications Name Start Date atorvastatin 40 mg [...] BMI Blood Pressure 5 ft 7 in 208.8 lbs 32.7 kg/m2 120/70 mm[Hg] Results Lab Results Date Name Specimen Result Interpretation Description Value Range Status Address Rapid Flu (A+B) Type Flu a negative [facility]: [address] [place] [address] Type Flu B negative [facility]: [facility] Allergies Code Code System Name Reaction [...] available 10/13/2019 XR, Chest, 2 View [facility] [address] [place] [address] (Work Place) Vaccine List Vaccine Type influenza, high dose seasonal 05/14/20160.5 mL influenza, injectable, quadrivalent 05/07/2019 influenza, unspecified formulation 09/06/2014 05/07/2018 pneumococcal conjugate PCV 13 07/09/2015 pneumococcal polysaccharide PPV23 06/10/2018 zoster recombinant 03/06/2018 06/23/2018 Social History Tobacco Smoking Status Former Smoker Past Encounters 10/13/2019 Vertigo; Obesity; Acute Bronchitis; History of Anemia Colin Momin MD: [address] [place] [phone], Ph. 09/28/2019 Influenza-like Illness; Primary Fibromyalgia Syndrome; Body Mass Index 30+ - Obesity Casimiro Villa, DO: [address] [place] [address], Ph. History of Present Illness Dizziness Reported By: Patient Note:2 week h/o persistant purulent/blood stained mucoid productive cough despite course tamiflu<div>d/c smoking 4 yrs</div><div>concerned dizziness related to h/o anemia </div> Review of Systems:ROS as noted in the [...]
[2019-10-23 10:02] LABS: BASOPHILS # (AUTO) 0.1 (0.0-0.1); BASOPHILS % 0.8 % (0.0-1.0); EOSINOPHILS # (AUTO) 0.3 (0.0-0.4); EOSINOPHILS % 5.5 % (0.0-6.0); HEMATOCRIT 29.5 % (34.2-44.1); HEMOGLOBIN 8.8 g/dL (12.0-16.0); LYMPHOCYTES # (AUTO) 1.4 (1.0-3.2); LYMPHOCYTES % 22.7 % (18.0-39.1); MEAN CORPUSCULAR HEMOGLOBIN 23.7 pg (28-32); MEAN CORPUSCULAR HGB CONC 29.8 g/dL (31-35); MEAN CORPUSCULAR VOLUME 79.3 fL (81-99); MONOCYTES # (AUTO) 0.5 (0.2-0.8); MONOCYTES % 8.3 % (4.4-11.3); NEUTROPHILS # (AUTO) 3.8 (2.1-6.9); NEUTROPHILS % 62.5 % (38.7-80.0); PLATELET COUNT 420 x10e3/uL (140-360); RED BLOOD COUNT 3.72 x10e6/uL (3.6-5.1); RED CELL DISTRIBUTION WIDTH 17.2 % (11.7-14.4)
[2019-10-23 10:22] LABS: ALANINE AMINOTRANSFERASE 26 IU/L (0-55); ALBUMIN 3.7 g/dL (3.5-5.0); ALBUMIN/GLOBULIN RATIO 1.2 (0.8-2.0); ALKALINE PHOSPHATASE 70 IU/L (40-150); ANION GAP 14.3 mmol/L (8-16); BLOOD UREA NITROGEN 15 mg/dL (7-26); BUN/CREATININE RATIO 19 (6-25); CALCIUM 9.5 mg/dL (8.4-10.2); CARBON DIOXIDE 28 mmol/L (22-29); CHLORIDE 105 mmol/L (98-107); CREATININE, SERUM 0.81 mg/dL (0.57-1.11); EST GLOMERULAR FILTRATION RATE > 60 ML/MIN (60-); GLUCOSE 110 mg/dL (74-118); POTASSIUM 4.3 mmol/L (3.5-5.1); SODIUM 143 mmol/L (136-145)
--- NOTE | 2019-10-23 10:47 | Diagnostic Imaging Report ---
EXAMINATION: CHEST 2 VIEWS INDICATION: Pre-operative COMPARISON: None FINDINGS: LINES/TUBES:Left chest pacer LUNGS:The lungs are well-inflated. No focal consolidation or pulmonary edema. No radiographically apparent pulmonary mass. PLEURA:No pleural effusion or pneumothorax. MEDIASTINUM:The cardiomediastinal silhouette appears normal in size and shape. Atherosclerotic calcifications of the thoracic aorta. BONES/SOFT TISSUES:No acute osseous injury. ABDOMEN:No free air under the diaphragm. IMPRESSION: No focal pneumonia or pulmonary edema. Signed by: Belen Roberts MD on 10/23/2019 10:45 AM
[2019-10-23 13:20] VITALS: BP 135/62
--- NOTE | 2019-10-23 14:22 | Operative Report ---
DATE OF PROCEDURE: 10/23/2019 SURGEON: Michael Gross MD PREOPERATIVE DIAGNOSIS: Right supraclavicular lymphadenopathy. POSTOPERATIVE DIAGNOSIS: Right supraclavicular lymphadenopathy. OPERATION PERFORMED: Right supraclavicular lymphadenectomy. FINE HAIRER: TIMOTHY Sexton. ANESTHESIA: General. COMPLICATIONS: None. ESTIMATED BLOOD LOSS: Minimal. DESCRIPTION OF PROCEDURE: With the patient lying in bed in the supine position under good general endotracheal anesthesia, the right neck and chest were prepped with Betadine solution and draped in the usual manner. The area overlying the supraclavicular region was then infiltrated with 0.25% Marcaine with epinephrine. An incision was made. It was carried down through the subcutaneous tissue and through the platysma. The palpable lymph node was then identified and the fat pad in the supraclavicular area was then slowly and carefully from all the surrounding structures. All bleeding points were ligated with 3-0 Vicryl and the fat pad was removed and sent for pathological examination. The whole area was thoroughly irrigated. Perfect hemostasis was ascertained. The platysma was then reapproximated with interrupted sutures of 3-0 Vicryl and the skin was closed with subcuticular 5-0 Vicryl. Benzoin, Steri-Strips, and dressings were applied. The sponge, lap, and needle count was correct. The patient tolerated the procedure well and returned to the recovery room in stable condition. Michael Gross MD JLR/MODL /[id number]
== END | disposition home or self-care (01) ==
LOC: OR 08:07
PROVIDERS: ATTEND Surgery
DX: R59.0 Localized enlarged lymph nodes (principal); M79.7 Fibromyalgia; G47.33 Obstructive sleep apnea (adult) (pediatric); I10 Essential (primary) hypertension; E78.5 Hyperlipidemia, unspecified; K75.81 Nonalcoholic steatohepatitis (NASH); K21.9 Gastro-esophageal reflux disease without esophagitis; K28.9 Gastrojejunal ulcer, unspecified as acute or chronic, without hemorrhage or perforation; I45.6 Pre-excitation syndrome; F41.9 Anxiety disorder, unspecified; F32.9 Major depressive disorder, single episode, unspecified; Z95.0 Presence of cardiac pacemaker; Z88.0 Allergy status to penicillin; Z86.711 Personal history of pulmonary embolism; Z85.3 Personal history of malignant neoplasm of breast; Z87.891 Personal history of nicotine dependence
CPT/HCPCS: 36415; 38500; 71046; 80053; 85025; 88305; 93005; J0131; J0330; J1885; J2001; J2250; J2405; J2704; J3010; 88304

== ENCOUNTER 2020-08-13 15:25 | Emergency (ER) | payer MEDICARE, OTHER ==
[~2020-08-13] VITALS: Ht 172.7 cm; Wt 99.8 kg
[~2020-08-13 15:25] MED LIST changes: -ACETAMINOPHEN 1000 MG/100 ML 100 ML IV ONE; -BUPIVACAINE 0.5%/EPI 30 ML SDV INJ ONE; -FENTANYL CITRATE/PF 100MCG/2 ML INJ ONE; -KETOROLAC TROMETHAMINE 30 MG/ML VIAL ONE; -LIDOCAINE HCL 2% LOCAL INJ 5 ML SDV VIAL INJ ONE; -MIDAZOLAM HCL 2 MG/2 ML VIAL ONE; -ONDANSETRON HCL INJ 2MG/ML 2ML 2 MG/ML VIAL ONE; -PROPOFOL IV EMULSION 10 MG/ML 20 ML VIAL ONE; -SEVOFLURANE INHAL SOLN 250 ML PEN BTL ONE; -SUCCINYLCHOLINE CHLORIDE 20 MG/ML 10ML VIAL ONE
== END 2020-08-13 16:50 | disposition home or self-care (01) ==
LOC: ER 16:48
DX: D64.9 Anemia, unspecified (principal); R00.2 Palpitations; I10 Essential (primary) hypertension; M79.7 Fibromyalgia; Z95.810 Presence of automatic (implantable) cardiac defibrillator; Z98.84 Bariatric surgery status; Z86.711 Personal history of pulmonary embolism
CPT/HCPCS: 99282

== ENCOUNTER → 2020-12-11 | Outpatient (CLI) | payer MEDICARE, OTHER | LOC: DX 10:47 | PROVIDERS: ATTEND Physical Medicine & Rehabilitation Pain Medicine | DX: M54.16 Radiculopathy, lumbar region (principal); M47.896 Other spondylosis, lumbar region; M51.26 Other intervertebral disc displacement, lumbar region; M81.0 Age-related osteoporosis without current pathological fracture | CPT/HCPCS: 72110; 72131; 77080 ==

== ENCOUNTER → 2020-12-19 | Day surgery (SDC) | payer MEDICARE, OTHER ==
[2020-12-17 10:20] LABS: BASOPHILS # (AUTO) 0.1 (0.0-0.1); BASOPHILS % 0.9 % (0.0-1.0); EOSINOPHILS # (AUTO) 0.5 (0.0-0.4); EOSINOPHILS % 7.7 % (0.0-6.0); HEMATOCRIT 45.1 % (34.2-44.1); HEMOGLOBIN 13.9 g/dL (12.0-16.0); LYMPHOCYTES # (AUTO) 1.3 (1.0-3.2); LYMPHOCYTES % 18.8 % (18.0-39.1); MEAN CORPUSCULAR HGB CONC 30.8 g/dL (31-35); MONOCYTES # (AUTO) 0.6 (0.2-0.8); MONOCYTES % 8.5 % (4.4-11.3); NEUTROPHILS # (AUTO) 4.5 (2.1-6.9); NEUTROPHILS % 63.8 % (38.7-80.0); PLATELET COUNT 364 x10e3/uL (140-360); RED BLOOD COUNT 5.57 x10e6/uL (3.6-5.1); RED CELL DISTRIBUTION WIDTH 16.3 % (11.7-14.4)
[~2020-12-19] MED LIST changes: +FENTANYL CITRATE/PF 100MCG/2 ML INJ ONE; +IOPAMIDOL 200 MG/ML 20 ML VIAL IT ONE; +LIDOCAINE HCL 1% 30ML-PF VIAL ONE; +LIDOCAINE HCL 2% LOCAL INJ 5 ML SDV VIAL INJ ONE; +METOPROLOL SUCC50 MG PO; +MIDAZOLAM HCL 2 MG/2 ML VIAL ONE; +PROPOFOL IV EMULSION 10 MG/ML 20 ML VIAL ONE; +TRIAMCINOLONE ACET 40 MG/ML VIAL ONE
[2020-12-19 08:05] VITALS: BP 123/50
== END | disposition home or self-care (01) ==
LOC: OR 05:51
PROVIDERS: ATTEND Physical Medicine & Rehabilitation Pain Medicine
DX: M47.896 Other spondylosis, lumbar region (principal); M54.16 Radiculopathy, lumbar region; M85.80 Other specified disorders of bone density and structure, unspecified site; M79.7 Fibromyalgia; G89.29 Other chronic pain; J45.909 Unspecified asthma, uncomplicated; I25.10 Atherosclerotic heart disease of native coronary artery without angina pectoris; I10 Essential (primary) hypertension; E11.9 Type 2 diabetes mellitus without complications; K21.9 Gastro-esophageal reflux disease without esophagitis; F32.9 Major depressive disorder, single episode, unspecified; Z88.1 Allergy status to other antibiotic agents; Z88.3 Allergy status to other anti-infective agents; Z88.0 Allergy status to penicillin; Z01.810 Encounter for preprocedural cardiovascular examination; Z01.812 Encounter for preprocedural laboratory examination; Z20.822 Contact with and (suspected) exposure to COVID-19; Z68.30 Body mass index [BMI] 30.0-30.9, adult; Z95.0 Presence of cardiac pacemaker; Z86.718 Personal history of other venous thrombosis and embolism
CPT/HCPCS: 36415; 64493; 64494; 64495; 77003; 85025; 93005; J2001 ×2; J2250; J2704; J3010; J3301; Q9967; U0002

== ENCOUNTER → 2021-01-09 | Day surgery (SDC) | payer MEDICARE, OTHER ==
[~2021-01-09] MED LIST changes: -FENTANYL CITRATE/PF 100MCG/2 ML INJ ONE; -IOPAMIDOL 200 MG/ML 20 ML VIAL IT ONE; -LIDOCAINE HCL 1% 30ML-PF VIAL ONE; -LIDOCAINE HCL 2% LOCAL INJ 5 ML SDV VIAL INJ ONE; -MIDAZOLAM HCL 2 MG/2 ML VIAL ONE; -PROPOFOL IV EMULSION 10 MG/ML 20 ML VIAL ONE; -TRIAMCINOLONE ACET 40 MG/ML VIAL ONE
[2021-01-09 08:42] VITALS: BP 112/56
== END | disposition home or self-care (01) ==
LOC: OR 06:30
PROVIDERS: ATTEND Physical Medicine & Rehabilitation Pain Medicine
DX: M46.1 Sacroiliitis, not elsewhere classified (principal); M70.60 Trochanteric bursitis, unspecified hip; M54.16 Radiculopathy, lumbar region; M47.896 Other spondylosis, lumbar region; M79.7 Fibromyalgia; N20.0 Calculus of kidney; G47.33 Obstructive sleep apnea (adult) (pediatric); J44.9 Chronic obstructive pulmonary disease, unspecified; I10 Essential (primary) hypertension; I25.10 Atherosclerotic heart disease of native coronary artery without angina pectoris; Z88.1 Allergy status to other antibiotic agents; Z88.3 Allergy status to other anti-infective agents; Z88.0 Allergy status to penicillin; Z01.812 Encounter for preprocedural laboratory examination; Z20.822 Contact with and (suspected) exposure to COVID-19; Z85.3 Personal history of malignant neoplasm of breast; Z92.3 Personal history of irradiation; Z86.718 Personal history of other venous thrombosis and embolism; Z87.891 Personal history of nicotine dependence
CPT/HCPCS: 76000; G0260; U0002

== ENCOUNTER → 2021-09-26 | Outpatient (CLI) | payer MEDICARE, OTHER | LOC: DX 13:49 | PROVIDERS: ATTEND Family Medicine | DX: Z13.820 Encounter for screening for osteoporosis (principal) | CPT/HCPCS: 77080 ==

== ENCOUNTER 2022-03-01 08:41 | Emergency (ER) | payer MEDICARE, OTHER ==
[~2022-03-01] VITALS: Ht 172.7 cm; Wt 87.1 kg
== END 2022-03-01 09:25 | disposition home or self-care (01) ==
LOC: ER 09:00
DX: K43.2 Incisional hernia without obstruction or gangrene (principal); I10 Essential (primary) hypertension; Z88.1 Allergy status to other antibiotic agents; Z88.3 Allergy status to other anti-infective agents; Z88.0 Allergy status to penicillin; Z79.899 Other long term (current) drug therapy; Z86.711 Personal history of pulmonary embolism; Z85.9 Personal history of malignant neoplasm, unspecified; Z95.810 Presence of automatic (implantable) cardiac defibrillator
CPT/HCPCS: 99282

== ENCOUNTER → 2022-03-10 | Outpatient (CLI) | payer MEDICARE, OTHER ==
[~2022-03-10] MED LIST changes: +DIATRIZOATE MEGL/DIATRIZOA SOD 30 ML BTL PO ONE; +IOPAMIDOL 370 MG/ML 100 ML INFUS..BTL INJ ONE
[2022-03-10 14:58] LABS: CREATININE, SERUM 0.98 mg/dL (0.57-1.11)
== END ==
LOC: CT 14:17
PROVIDERS: ATTEND Surgery
DX: R10.9 Unspecified abdominal pain (principal)
CPT/HCPCS: 36415; 74177; 82565; 84520; Q9967